=== PATIENT | female | born 1975 | race Caucasian/White ===

== ENCOUNTER 2016-09-23 14:13 | Emergency (ER) | payer OTHER ==
[2016-09-23 14:32] VITALS: BP 149/98; BMI 53.0
[2016-09-23] MEDS ORDERED: TYLENOL #3 TAB (W/CODEINE) PO ONE ×2 (16:31→16:38)
[2016-09-23] MEDS ORDERED: MOTRIN TAB 800 MG PO ONE ×2 (16:32→16:38)
--- NOTE | 2016-09-23 16:34 | DR.GENAD ---
HPI - PCP Primary Care Physician: SKY - HPI Comment HPI Comment: SMALL ABSCESS NOTED 2 WEEKS AGO WHICH IS INCREASING. SMALL DRAINAGE PRESENT. A SMALL ABSCESS NOW STARTING BELOW THE THE FIRST LESION. NO FEVER. - Complaint/Symptoms Chief Complaint Doctors Comments: ABSCESS RIGHT AXILLA TIMES 2 WEEKS. SMALL DRAINAGE REPORTED. Chief Complaint:: RISEN UNDER RIGHT ARM PIT. 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 negative: Chills, Fever Eyes: No Symptoms Reported. negative: Eye Pain, Discharge ENTM: No Symptoms Reported Respiratoy: No Symptoms Reported Cardiovascular: No Symptoms Reported Gastrointestinal/Abdominal: No Symptoms Reported Genitourinary: No Symptoms Reported Neurological: No Symptoms Reported Musculoskeletal: Other (RIGHT ARM PIT PAIN AND ABSCESS.) Integumentary: Change in Color, Wound (ABSCESS RIGHT AXILLA.) Hematologic/Lymphatic: No Symptoms Reported Endocrine: No Symptoms Reported All Other Systems: Reviewed and Negative PE - Vital Signs Vitals: Temperature 98.9 F Pulse Rate 107 Respiratory Rate 22 Blood Pressure [Right Arm] 168/90 Blood Pressure [Left Arm] 174/89 Blood Pressure 149/98 O2 Sat by Pulse Oximetry 97 - General Limitations: No Limitations General Appearance: Alert - Head Head Exam: Normal Inspection - Eyes Eye exam: Normal Appearance - ENT ENT Exam: Normal External Ear Exam External Ear Exam: Normal External Inspection Nose Exam: Normal Nose Exam Mouth Exam: Normal Inspection Throat Exam: Normal Inspection - Neck Neck Exam: Normal Inspection - Chest Chest Inspection: Symmetric Chest Wall Rise - Respiratory Respiratory Exam: Bilateral Clear to Auscultation - Cardiovascular Cardiovascular Exam: Regular Rate, Normal Rhythm, Normal Heart Sounds - Abdominal Exam Abdominal Exam: Normal Inspection - Extremities Extremities Exam: Tenderness (ABSCESS RIGHT AXILLA.) - Back Back Exam: Normal Inspection - Neurologic Neurological Exam: Alert, Oriented X3 - Psychiatric Psychiatric Exam: Anxious - Skin Skin Exam: Erythema (RT AXILLA) MDM - Additional Information Additional Information Obtained From: Family - Differential Diagnosis Differential Diagnosis: ABSCESS RT AXILLA, CELLULITIS RT AXILLA. Course - Treatment Treatment: SEE ORDERS. - Education/Counseling Education/Counseling: Patient, Family, Education Educated On: Diagnosis, Needs for Follow Up ROR - Labs Reviewed Laboratory: 09/23/16 16:08 Axilla - Right Gram Stain - Final Procedures - Incision and Drainage Blade Size: 11 I & D Procedure: betadine prep, sterile dressing applied, gauze wick placed (1/ 4 INCH IODOFORM GAUZE.) Progress: INCISION AND DRAINAGE DONE ON RIGHT AXILLA. 3CC PUS DRAINED. IODOFORM PACKING DONE. - Diagnosis Discharge Problem: Abscess of right axilla, Cellulitis of right axilla - Discharge Plan Disposition: 01 HOME, SELF-CARE Condition: Stable Prescriptions: Acetaminophen/Codeine Tab [TYLENOL w/CODEINE #3 (300 MG/30 MG) *] 1 tab PO Q4- 6H PRN #15 tab PRN Reason: Pain Ibuprofen [Motrin Tab 800 mg] 800 mg PO Q8H PRN #20 tab PRN Reason: Pain/Inflammation Sulfamethoxazole-Trimethoprim [BACTRIM DS TAB 800/160 MG *] 1 tab PO Q8H #20 tab - Follow ups/Referrals Follow ups/Referrals: Nelson Fraga [Primary Care Provider] - 2 days - Instructions Instructions: Cellulitis, Abscess Additional Instructions: RETURN TO ED IF WORSE.
== END 2016-09-23 16:45 | disposition home or self-care (01) ==
LOC: ER 14:39
PROC: 0X943ZZ Drainage of Right Axilla, Percutaneous Approach (ICD-10-PCS; principal; 2016-09-23)
DX: L02.411 Cutaneous abscess of right axilla (principal); L03.111 Cellulitis of right axilla; B95.62 Methicillin resistant Staphylococcus aureus infection as the cause of diseases classified elsewhere
CPT/HCPCS: 10060; 87070; 87075; 87077; 87186; 87205; 99282

== ENCOUNTER 2017-10-25 18:42 | Emergency (ER) | payer SELFPAY ==
[2017-10-25 18:50] VITALS: BP 138/96; BMI 47.3
[2017-10-25] MEDS ORDERED: VALTREX TAB 1 GM PO ONE ×2 (19:43→19:49)
[2017-10-25] MEDS ORDERED: KEFLEX CAP 500 MG PO ONE ×2 (19:43→19:49)
[2017-10-25] MEDS ORDERED: TYLENOL #3 TAB (W/CODEINE) PO STA (19:43)
[2017-10-25] MEDS ORDERED: TYLENOL #3 TAB (W/CODEINE) PO ONE (19:49)
--- NOTE | 2017-10-25 19:49 | DR.EXTPAIN ---
HPI - Time seen Time seen: 19:45 - PCP Primary Care Physician: Dr. Fraga - Complaint/Symptoms Chief Complaint Doctor Comments: Patient states she noticed a bumb on her left back two days ago that has gotten larger and more painful today. states she thought it was a spider bite because of the location and pain. States she did not see a spider nor anything bite her. States she was weak yesterday for a while but denies fever, chills, nausea or vomiting. states she is a patient of Dr. Fraga and all of her shots are up to date. she denies cold, cough, nausea or vomiting. States the pain is sharp pain that is 8 of 10. States her tetanus is up to date. Chief Complaint:: stated that she was bit by a spider on and the area has became larger, more inflamed and more painful to the touch. 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 - Family History History of Family Medical Conditions: Yes Family Medical History: Cancer - Social History Does patient currently use any type of tobacco product: No Have you used tobacco products in the last 12 months: No Type of Tobacco Use: None Does any household member use tobacco: No Alcohol Use: None Do you use any recreational Drugs:: No Lives With: Family Lives Where: Home - infectious screening In the last 2 months have you had wt loss of >10#?: NO Have you had fever, night sweats or hemotysis?: No Have you traveled outside the country in the last 6 months?: No Isolation: Standard ROS - Review of Systems Constitutional: No Symptoms Reported, Weakness. negative: See HPI, Chills, Diaphoresis, Fever, Malaise, Irritable, Fatigue, Loss of Appetite, Other Eyes: No Symptoms Reported ENTM: No Symptoms Reported. negative: See HPI, Ear Pain, Ear Discharge, Pulling on Ears, Hearing Loss, Nose Pain, Nose Discharge, Epistaxis, Nose Congestion, Mouth Pain, Mouth Swelling, Loose Teeth, Drooling, Throat Pain, Throat Swelling, Ear Foreign Body Respiratoy: No Symptoms Reported. negative: See HPI, Productive Cough, Non- Productive Cough, Moist Cough, Dry Cough, Hacking Cough, Barking Cough, Brassy Cough, Orthopnea, Short of Breath, Stridor, Wheezing, Hemoptysis, Other Cardiovascular: No Symptoms Reported Gastrointestinal/Abdominal: No Symptoms Reported. negative: See HPI, Abdominal Pain, Constipation, Diarrhea, Nausea, Vomiting, Food Intolerance, Other Genitourinary: No Symptoms Reported Neurological: No Symptoms Reported, Anxiety, Depressed, Emotional Problems ( state separted from spouse recently and has no insurance), Weakness Musculoskeletal: No Symptoms Reported, Back Pain, Left, Back (4 cm area erythema with papules, croups) Integumentary: No Symptoms Reported, Lesions, Rash (left scapula back) Hematologic/Lymphatic: No Symptoms Reported. negative: See HPI, Anemia, Blood Clots, Easy Bleeding, Easy Bruising, Swollen Glands, Lymphadenopathy, Other Endocrine: No Symptoms Reported Psychiatric: No Symptoms Reported. negative: See HPI, Anxiety, Depression, Hallucinations, Excessive crying, Suicidal, Other PE - Vital Signs Vitals: Temperature 98.3 F Pulse Rate 104 Respiratory Rate 22 Blood Pressure [Right Arm] 168/90 Blood Pressure [Left Arm] 174/89 Blood Pressure 138/96 O2 Sat by Pulse Oximetry 95 - General Limitations: No Limitations General Appearance: Alert, In Distress (moderate) - Head Head Exam: Normal Inspection, Atraumatic, Normocephalic - Eyes Eye exam: Normal Appearance, PERRL, EOMI. negative: Scleral Icterus, Conjunctival Injection, Nystagmus, Miosis, Mydrasis, Periorbital Swelling, Periorbital Tenderness, Other - ENT ENT Exam: Normal Exam, Normal Oropharynx, Normal External Ear Exam, Mucous Membranes Moist, TM's Normal Bilaterally - Neck Neck Exam: Normal Inspection, Full ROM, Trachea Midline. negative: Tenderness, Meningismus, Lymphadenopathy, Thyromegaly, Other - Chest Chest Inspection: Normal Inspection, Symmetric Chest Wall Rise, Tenderness, Rash (left scapula back) - Respiratory Respiratory Exam: Normal Lung Sounds Bilat Respiratory Exam: Bilateral Clear to Auscultation - Cardiovascular Cardiovascular Exam: Regular Rate, Normal Rhythm, Normal Heart Sounds - Abdominal Exam Abdominal Exam: Normal Inspection, Normal Bowel Sounds, Soft. negative: Distention, Tenderness, Guarding, Rebound, Rigidity, Dimnished Bowel Sounds, Hyperactive Bowel Sounds, Hypoactive Bowel Sounds, Organomegaly, Trauma, Incision, Ascites, Mass, Bruit, Pulsatile Mass, Hernia, Other Abdominal Tenderness: negative: RUQ, RLQ, LUQ, LLQ, Epigastrium, Suprapubic, Diffuse, Mild, Moderate, Severe, Other - Extremities Extremities Exam: Normal Inspection, Full ROM, Tenderness (left scapula back with croup of papules with erythema), Normal Capillary Refill - Upper Extremities Shoulder Exam: Normal Inspection, Full ROM Arm Exam: Normal Inspection, Full ROM Elbow Exam: Normal Inspection, Full ROM Forearm Exam: Normal Inspection, Full ROM Hand Exam: Normal Inspection, Full ROM Neuromotor Exam: Normal Exam Neurosensory Exam: Normal Exam Hand Tendon Exam: negative: Flexor Digitorium Profundus (Location), Flexor Digitorium Superficialis (Location), Extensor Tendon (Location), Other Upper Ext. Vascular Exam: Capillary Refill, Radial Pulse (normal) - Lower Extremities Hip/Pelvis Exam: Normal Inspection, Full ROM Upper Leg Exam: Normal Inspection, Full ROM Knee Exam: Normal Inspection, Full ROM Lower Leg Exam: Normal Inspection, Full ROM Ankle Exam: Normal Inspection, Full ROM Foot/Toe Exam: Normal Inspection, Full ROM Neurovascular/Tendon Exam: Normal Capillary Refill Gait Exam: Observed and Normal - Back Back Exam: Normal Inspection, Full ROM - Neurological Neurological Exam: Alert, Oriented X3, CN II-XII Intact, Normal Gait, Reflexes Normal - Psychiatric Psychiatric Exam: Normal Affect, Normal Mood - Skin Skin Exam: Warm, Dry, Intact, Normal Color Type of Lesion: negative: Rash, Abscess, Laceration, Foreign Body, Bite/Sting, Abrasion, Other Distribution: negative: Generalized, Involves Palms/Soles, Head, Face, Neck, Thorax, Chest, Back, Abdomen, Genitals, LUE, LLE, RUE, RLE, Other Description: Erythematous, Swelling, Blisters - Diagnosis Discharge Problem: Herpes zoster Qualifiers: Herpes zoster complications: without complications Qualified Code(s): B02.9 - Zoster without complications Cellulitis Qualifiers: Site of cellulitis: trunk - Discharge Plan Disposition: 01 HOME, SELF-CARE Condition: Stable Prescriptions: Acetaminophen/Codeine Tab [TYLENOL w/CODEINE #3 (300 MG/30 MG) *] 1 tab PO Q4- 6H PRN #18 tab PRN Reason: Pain Cephalexin [KEFLEX CAP 500 MG *] 500 mg PO TID #30 cap Famciclovir 500 mg PO TID 7 Days #21 tablet - Follow ups/Referrals Follow ups/Referrals: Nelson Fraga [Primary Care Provider] - 3 days - Instructions Instructions: Cellulitis, Adult, [id number], Shingles, [id number]
== END 2017-10-25 20:10 | disposition home or self-care (01) ==
LOC: ER 18:52
DX: L03.319 Cellulitis of trunk, unspecified (principal); B02.9 Zoster without complications
CPT/HCPCS: 99282